=== PATIENT | male | born 1985 | race Two or more races ===

== ENCOUNTER 2017-12-14 20:13 | Emergency (ER) | payer SELFPAY ==
[2017-12-14 21:13] LABS: ADD MAN DIFF? NO
[2017-12-14] MEDS: IV NORMAL SALINE 1000ML BAG 1,000 ML IV ×2 (21:15)
[2017-12-14 21:18] LABS: BASO % 0 % (0-3); EOS # 0.1 x10^3/uL (0.0-0.7); EOS % 1 % (0-3); HEMATOCRIT 46.5 % (39.0-53.0); LYMPH # 2.5 x10^3/uL (1.0-4.8); LYMPH % 24 % (24-48); MEAN CORPUSCULAR HEMOGLOBIN 30 pg (25-35); MEAN CORPUSCULAR HGB CONC 35 g/dL (31-37); MEAN CORPUSCULAR VOLUME 86 fL (79-100); MONO # 0.7 x10^3/uL (0.0-1.1); MONO % 6 % (0-9); NEUT # 7.2 x10^3uL (1.8-7.7); NEUT % 68 % (31-73); PLATELET COUNT 210 x10^3/uL (140-400); RED CELL DISTRIBUTION WIDTH 13.2 % (11.5-14.5); WHITE BLOOD COUNT 10.5 x10^3/uL (4.0-11.0)
[2017-12-14] MEDS: IBUPROFEN 800 MG TABLET. PO ×2 (21:18)
[2017-12-14] MEDS: ACETAMINOPHEN 500 MG TABLET PO ×2 (21:18)
[2017-12-14] MEDS: ONDANSETRON PF 4 MG/2 ML VIAL. IV ×2 (21:19)
[2017-12-14 21:45] LABS: INFLUENZA A PATIENT NEGATIVE (NEGATIVE); INFLUENZA B PATIENT NEGATIVE (NEGATIVE); OBC FLU VALID
[2017-12-14] MEDS: CYCLOBENZAPRINE 10 MG TABLET. PO ×2 (22:24)
[2017-12-15 07:57] LABS: NEGATIVE OBC STREP NEG; POSITIVE OBC STREP POS
== END 2017-12-14 22:28 | disposition home or self-care (01) ==
LOC: ER 20:13
DX: B34.9 Viral infection, unspecified (principal); F17.210 Nicotine dependence, cigarettes, uncomplicated
CPT/HCPCS: 36415; 85025; 87070; 87804; 87804-59; 87880; 96361; 96374; 99284-25; J2405; J7030